=== PATIENT | female | born 1950 | race Two or more races ===

== ENCOUNTER 2018-05-08 12:20 | Outpatient (CLI) | payer MEDICARE | END 2018-05-08 23:59 | disposition home health service (06) | LOC: WOU 12:20 | PROVIDERS: ATTEND Surgery | PROC: 2W24X4Z Dressing of Chest Wall using Bandage (ICD-10-PCS; principal; 2018-05-08) | PROC: 2W23X4Z Dressing of Abdominal Wall using Bandage (ICD-10-PCS; principal; 2018-05-08) | DX: T21.21XA Burn of second degree of chest wall, initial encounter (principal); T21.22XA Burn of second degree of abdominal wall, initial encounter; T31.0 Burns involving less than 10% of body surface; X10.0XXA Contact with hot drinks, initial encounter; Y92.511 Restaurant or cafe as the place of occurrence of the external cause; Y99.8 Other external cause status; E66.9 Obesity, unspecified; Z68.30 Body mass index [BMI] 30.0-30.9, adult | CPT/HCPCS: 16020; A6402; Z7610; G0463 ==

== ENCOUNTER 2018-05-15 12:40 | Outpatient (CLI) | payer MEDICARE | END 2018-05-15 23:59 | disposition home health service (06) | LOC: WOU 12:40 | PROVIDERS: ATTEND Surgery | DX: T21.21XD Burn of second degree of chest wall, subsequent encounter (principal); T31.0 Burns involving less than 10% of body surface; X10.0XXD Contact with hot drinks, subsequent encounter; E66.9 Obesity, unspecified; Z68.30 Body mass index [BMI] 30.0-30.9, adult; Z71.3 Dietary counseling and surveillance; E11.9 Type 2 diabetes mellitus without complications; I10 Essential (primary) hypertension; Z83.3 Family history of diabetes mellitus; Z79.84 Long term (current) use of oral hypoglycemic drugs; Z79.899 Other long term (current) drug therapy | CPT/HCPCS: 16020; A6402; Z7610; G0463 ==

== ENCOUNTER 2018-05-22 14:33 | Outpatient (CLI) | payer MEDICARE | END 2018-05-22 23:59 | disposition home or self-care (01) | LOC: WOU 14:33 | PROVIDERS: ATTEND Surgery | DX: T21.21XD Burn of second degree of chest wall, subsequent encounter (principal); T31.0 Burns involving less than 10% of body surface; X10.0XXD Contact with hot drinks, subsequent encounter; E66.9 Obesity, unspecified; Z68.30 Body mass index [BMI] 30.0-30.9, adult | CPT/HCPCS: 16020; A6402; Z7610; G0463 ==